=== PATIENT | male | born 1970 | race Caucasian/White ===

== ENCOUNTER 2018-11-24 11:58 | Emergency (ER) | payer BC ==
[2018-11-24 12:01] VITALS: BMI 42.8
--- NOTE | 2018-11-24 12:04 | PDOC ---
History of Present Illness - General Chief Complaint: Blood Pressure Problem Stated Complaint: HTN Time Seen by Provider: 11/24/18 12:03 History Source: Patient Exam Limitations: No Limitations - History of Present Illness Initial Comments: 11/24/18 12:33 48 year old male with PMH HTN (prior medically managed x1.5 years ago), high cholesterol (never medically managed), prior smoking history (quit 9 years ago) sent to ED by PCP for high blood pressure. Pt reported he stopped his two blood pressure medications x1.5 years ago because he lost insurance and did not have anyone to prescribe the medication. He stated he recently regained health insurance, prompting him to attend his annual PCP appt today. Pt reported he is often nervous in medical settings like his PCP office and [facility] because his sister young from lymphoma. Pt reported his blood pressure was elevated (the top number "over 200") while at the office today, but he had been checking it periodically in the last 1-2 weeks preceding his appointment and would usually get measurements systolic 140-150s. Pt denied any complaints, including chest pain, SOB, RINCON, LE swelling, back pain, abdominal pain, headache, blurry vision, weakness, numbness, tingling. Pt reported recent 10 pound weight loss and improvement of exercise tolerance. Last ECHO/Stress: x3 years ago, normal per pt Manager Order: pt does not remember name of physician Current medications: pt does not remember the names of his prior medications Past History - Past Medical History Allergies/Adverse Reactions: Allergies Allergy/AdvReac Type Severity Reaction Status Date / Time No Known Allergies Allergy Verified 11/24/18 11:59 Home Medications: Ambulatory Orders Amlodipine Besylate 5 mg PO DAILY #8 tablet 11/24/18 COPD: No HTN: Yes - Suicide/Smoking/Psychosocial Hx Smoking History: Former smoker Have you smoked in the past 12 months: No If you are a former smoker, when did you quit?: 9YRS Information on smoking cessation initiated: No Hx Alcohol Use: Yes (RARE) Drug/Substance Use Hx: No Review of Systems - Review of Systems Able to Perform ROS?: Yes Comments:: 11/24/18 12:24 General: denied fever, chills, generalized weakness. HEENT: denied sore throat, rhinorrhea, ear pain. Heart: denied chest pain, palpitations, syncope, diaphoresis. Respiratory: denied shortness of breath, cough, sputum production, hemoptysis. Abdomen: denied abdominal pain, nausea, vomiting, diarrhea, constipation, blood in stool. : denied dysuria, increased urinary frequency, hematuria, urinary incontinence , flank pain. Back: denied back pain. Musculoskeletal: denied joint pain, muscle pain, joint swelling. Neurological: denied headache, dizziness, numbness, tingling, weakness. Skin: denied rash, laceration, abrasion. *Physical Exam - Vital Signs Last Vital Signs Temp Pulse Resp BP Pulse Ox 0/0 L 11/24/18 11:59 - Physical Exam Comments: 11/24/18 12:24 Constitutional: Well-nourished, Well-developed, appearing stated age. sitting upright on stretcher without support. morbidly obese. HEENT: head is normocephalic, atraumatic. EOMI. PERRLA. dry mucous membranes. Neck: supple. Full ROM. Heart: regular rhythm. no murmurs, rubs or gallops. Lungs: clear to auscultation bilaterally. no crackles, rhonchi or wheezing. no stridor. speaking full sentences. Abdomen: soft, nontender. normal bowel sounds. no rebound, guarding, masses. protuberant. Extremities: peripheral pulses intact. 1+ pitting edema bilateral lower extremities. Neurological: CN 2-12 grossly intact. moves all four extremities. Psych: awake, alert, oriented x3. follows commands. answers questions appropriately. ED Treatment Course - LABORATORY CBC & Chemistry Diagram: 11/24/18 13:12 11/24/18 13:12 Medical Decision Making - Medical Decision Making 11/24/18 12:25 48 year old male with above PMH sent to ED by PCP for asymptomatic HTN. Pt denied all complaints. Physical examination significant for 1+ pitting edema bilaterally. Initial Vital Signs Temp Pulse Resp BP Pulse Ox 98.2 F 121 H 20 199/133 H 100 11/24/18 11:59 11/24/18 11:59 11/24/18 11:59 11/24/18 11:59 11/24/18 11:59 Afebrile. Tachycardic. No tachypnea. Hypertensive. No hypoxia on room air. EKG performed at 1231; rate 112, regular rhythm, normal axis, normal intervals, no acute ST changes. Labs ordered: CBC, CMP Medications ordered: normal saline 1000 cc bolus once, hydrochlorothiazide 12.5 mg PO once Imaging ordered: none 11/24/18 12:45 [facility] called for patient's prescription history - reported pt has had amoxicillin and eye drop prescription filled, but no other medications. 11/24/18 13:39 CBC WBC 8.6 K/mm3 (4.0-10.8) 11/24/18 13:12 RBC 5.40 M/mm3 (4.00-5.60) 11/24/18 13:12 Hgb 15.8 GM/dl (11.7-16.9) 11/24/18 13:12 Hct 46.7 % (35.4-49) 11/24/18 13:12 MCV 86.6 fl (80-96) 11/24/18 13:12 MCH 29.3 pg (25.7-33.7) 11/24/18 13:12 MCHC 33.8 g/dl (32.0-35.9) 11/24/18 13:12 RDW 13.1 % (11.9-15.9) 11/24/18 13:12 Plt Count 274 K/MM3 (134-434) 11/24/18 13:12 MPV 8.0 fl (7.5-11.1) 11/24/18 13:12 Absolute Neuts (auto) 6.3 K/mm3 11/24/18 13:12 Neutrophils % 74.1 % (42.8-82.8) 11/24/18 13:12 Lymphocytes % 16.1 % (8-40) 11/24/18 13:12 Monocytes % 6.6 % (3.8-10.2) 11/24/18 13:12 Eosinophils % 0.7 % (0-4.5) 11/24/18 13:12 Basophils % 2.5 % (0-2.0) H 11/24/18 13:12 No leukocytosis. No anemia. No thrombocytopenia. 11/24/18 13:48 CMP Sodium 137 mmol/L (136-145) 11/24/18 13:12 Potassium 3.7 mmol/L (3.5-5.1) 11/24/18 13:12 Chloride 105 mmol/L (98-107) 11/24/18 13:12 Carbon Dioxide 25 mmol/L (21-32) 11/24/18 13:12 Anion Gap 7 MMOL/L (8-16) L 11/24/18 13:12 BUN 13.0 mg/dl (7-18) 11/24/18 13:12 Creatinine 1.0 mg/dl (0.55-1.3) 11/24/18 13:12 Est GFR (CKD-EPI)AfAm 103.42 11/24/18 13:12 Est GFR (CKD-EPI)NonAf 89.23 11/24/18 13:12 Random Glucose 118 mg/dl (74-106) H 11/24/18 13:12 Calcium 9.0 mg/dl (8.5-10) 11/24/18 13:12 Total Bilirubin 0.9 mg/dl (0.2-1) 11/24/18 13:12 AST 26 U/L (15-37) 11/24/18 13:12 ALT 30 U/L (13-61) 11/24/18 13:12 Alkaline Phosphatase 70 U/L (45-117) 11/24/18 13:12 Total Protein 7.1 g/dl (6.4-8.2) 11/24/18 13:12 Albumin 4.2 g/dl (3.4-5.0) 11/24/18 13:12 No electrolyte abnormalities. No BALNE. No transaminitis. 11/24/18 13:49 Pt informed of results. Pt reported improvement of dry mouth, anxiety. IV fluids still running. Will observe. 11/24/18 15:07 Pt reported no complaints. Vital Signs Temperature 98.2 F 11/24/18 11:59 Pulse Rate 102 H 11/24/18 13:45 Respiratory Rate 20 11/24/18 11:59 Blood Pressure 172/106 H 11/24/18 13:45 O2 Sat by Pulse Oximetry (%) 100 11/24/18 11:59 Tachycardia improving. Hypertension improving. Pt informed of need for BP control, and PCP follow up. Will prescribe low dose Amlodipine 5 mg daily x8 pills. Pt has appt for PCP F/U next coming . Pt discharged. *DC/Admit/Observation/Transfer Diagnosis at time of Disposition: Hypertension - Discharge Dispostion Disposition: HOME Condition at time of disposition: Improved Decision to Admit order: No - Prescriptions Prescriptions: Amlodipine Besylate 5 mg PO DAILY #8 tablet - Referrals Referrals: Gia Husain [Primary Care Provider] - - Patient Instructions Printed Discharge Instructions: DI for High Blood Pressure, How to Monitor Your Blood Pressure at Home Additional Instructions: You were seen today for elevated blood pressure. You lab work was normal. Your EKG was normal. Follow up with your primary care doctor within three days. Call their office first thing and ask for the soonest appointment. 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 Return to the Emergency Department for chest pain, shortness of breath, lower leg swelling, severe back or abdominal pain, increasing headache, visual changes or any other new, worsening or concerning symptoms. - Post Discharge Activity Forms/Work/School Notes: Back to Work
[2018-11-24 12:15] VITALS: TEMP 98.2
--- NOTE | 2018-11-24 12:28 | PDOC ---
Attending Attestation - Resident Resident Name: Yumiko Barragan - ED Attending Attestation I have performed the following: I have examined & evaluated the patient, The case was reviewed & discussed with the resident, I agree w/resident's findings & plan, Exceptions are as noted - HPI HPI: 11/24/18 12:28 48y M hx of htn, hl, sent by PMD for evaluation of HTN. The pt states he use to be on meds for htn, but had stopped following up with his doctor due to insurance problems, he went for the first visit today and they found him hypertnsive so told him to come to the ED for evaluation. The pt denies any headache, cp, sob, palpitations, lightehadedness, dizziness, vision changes, focal numbness/tingling/weakness, diarrhea, melena/bpr, dysuria, frequency. Pt has been off his meds for over a eyar, but recently since he knew he had a doctors appt coming up, has been checking his bp at home twice a day notes it usually is around 150/90-160/100s. he mentions his bp and HR typically is elevated when he goes to the doctor due to being anxiuos as his sister/father had been frqueently sick. GENERAL: The patient is awake, alert, and fully oriented, Nontoxic - in no acute distress, obese HEAD: Normocephalic, atraumatic. EYES: extraocular movements intact, sclera anicteric, conjunctiva clear. ENT: Normal voice, dry mucous membranes. NECK: Normal range of motion, supple LUNGS: Breath sounds equal, clear to auscultation bilaterally. No wheezes, no rhonchi, no rales. HEART: regular rate, tachycardic, normal S1 and S2 without murmur, rub or gallop. ABDOMEN: Soft, nontender, No guarding, no rebound. No CVA tenderness EXTREMITIES: Normal range of motion, trace edema. NEUROLOGICAL: No facial assymetry, Normal speech, PSYCH: Normal mood, normal affect. SKIN: Warm, Dry, normal turgor, suspect htn tachy from dehyration and possible anxiety will ck basic labs to r/o anemia, metabolic derangement fluids for dehydration will give pt norvasc for bp control will reassess - Physicial Exam PE: 08/01/19 15:10 see above - Medical Decision Making 11/24/18 15:06 labs reviewed bp improved hr improved pt remains asymptmopatic will dc the pt with norvasc and pmd fu as pts bp has been fairly stable in 150s sbp at home, suspect his bp may actually be due to white coat hypertension. I discussed the physical exam findings, ancillary test results and final diagnoses with the patient. I answered all of the patient's questions. The patient was satisfied with the care received and felt comfortable with the discharge plan and treatment plan. The patient will call their primary care physician within 24 hours to arrange follow-up and will return to the Emergency Department with any new, persistent or worsening symptoms.
[2018-11-24] MEDS ORDERED: SODIUM CHLORIDE 1,000 ML IV STA (13:08)
[2018-11-24] MEDS ORDERED: HYDROCHLOROTHIAZIDE 12.5 MG CAPSULE (FP) PO ONE (13:12)
[2018-11-24] MEDS ORDERED: HYDROCHLOROTHIAZIDE 25 MG TABLET (FP) ONE (13:26)
[2018-11-24 13:27] LABS: BASO % 2.5 % (0-2.0); EOS % 0.7 % (0-4.5); HEMATOCRIT 46.7 % (35.4-49); HEMOGLOBIN 15.8 GM/dl (11.7-16.9); LYMPH % 16.1 % (8-40); MCH 29.3 pg (25.7-33.7); MCHC 33.8 g/dl (32.0-35.9); MEAN CELL VOLUME 86.6 fl (80-96); MONO % 6.6 % (3.8-10.2); NEUT % 74.1 % (42.8-82.8); PLATELET COUNT 274 K/MM3 (134-434); RDW 13.1 % (11.9-15.9); WHITE BLOOD COUNT 8.6 K/mm3 (4.0-10.8)
[2018-11-24 13:44] LABS: ALBUMIN 4.2 g/dl (3.4-5.0); BILIRUBIN,TOTAL 0.9 mg/dl (0.2-1); POTASSIUM 3.7 mmol/L (3.5-5.1); TOT PROT 7.1 g/dl (6.4-8.2)
--- NOTE | 2018-11-24 14:07 | EKG ---
Test Reason : Blood Pressure : / mmHG Vent. Rate : 112 BPM Atrial Rate : 112 BPM P-R Int : 154 ms QRS Dur : 094 ms QT Int : 332 ms P-R-T Axes : 014 056 048 degrees QTc Int : 453 ms SINUS TACHYCARDIA OTHERWISE NORMAL ECG NO PREVIOUS ECGS AVAILABLE Confirmed by CRISTIAN HOBBS MD ([id number]) on 11/24/2018 2:07:19 PM Referred By: NYA RAYGOZA Confirmed By:CRISTIAN HOBBS MD
[2018-11-24 15:11] VITALS: BP 195/121; PULSE 94
[2018-11-25] MEDS ORDERED: HYDROCHLOROTHIAZIDE 12.5 MG CAPSULE (FP) PO ONE (13:12)
== END 2018-11-24 15:22 | disposition home or self-care (01) ==
LOC: FER 11:58
PROC: 3E0337Z Introduction of Electrolytic and Water Balance Substance into Peripheral Vein, Percutaneous Approach (ICD-10-PCS; principal; 2018-11-24)
DX: I10 Essential (primary) hypertension (principal); E78.00 Pure hypercholesterolemia, unspecified; R00.0 Tachycardia, unspecified; Z87.891 Personal history of nicotine dependence
CPT/HCPCS: 36415; 80053; 85025; 93005; 99284-25; J7030

== ENCOUNTER 2023-10-25 16:02 | Emergency (ER) | payer BC, OTHER ==
[2023-10-25 16:17] VITALS: TEMP 97.8; BMI 39.9
[2023-10-25 19:18] VITALS: RESP 18
[2023-10-25] MEDS ORDERED: LOSARTAN POTASSIUM 50 MG TABLET ONE ×2 (19:52→21:36)
[2023-10-25] MEDS ORDERED: LABETALOL HCL 100 MG TABLET (FP) ONE ×2 (19:52→21:35)
[2023-10-25] MEDS: LABETALOL HCL 100 MG TABLET (FP) PO ONE ×2 (19:58→21:51)
[2023-10-25] MEDS: LOSARTAN POTASSIUM 50 MG TABLET PO ONE ×2 (19:58→21:51)
[2023-10-25 21:27] VITALS: PULSE 84
[2023-10-25 23:03] VITALS: BP 191/115
== END 2023-10-25 23:37 | disposition home or self-care (01) ==
LOC: FER 16:02
DX: I10 Essential (primary) hypertension (principal); R04.0 Epistaxis; Z87.891 Personal history of nicotine dependence
CPT/HCPCS: 99283-25